=== PATIENT | male | born 1975 | race Caucasian/White ===

== ENCOUNTER 2018-12-23 16:35 | Emergency (ER) | payer OTHER ==
[~2018-12-23] VITALS: Ht 185.4 cm; Wt 127.9 kg
[~2018-12-23 16:35] MED LIST: ESOM40CA PO; TRAM50TA PO
--- NOTE | 2018-12-23 17:19 | RAD ---
ELBOW LEFT 3V History: Injury from fall today, left elbow pain Comparison: None. Findings: 3 views left elbow are submitted. There is a nondisplaced radial head fracture. There is displacement of anterior fat pad. Impression: 1. There is nondisplaced radial head fracture. Electronically signed by: Bienvenido Garnett MD (12/23/2018 5:15 PM) [id number]
--- NOTE | 2018-12-23 17:39 | PHYS DOC ---
Past History Past Medical History: No Pertinent History, GERD Past Surgical History: Other Alcohol Use: None Drug Use: None Adult General Chief Complaint Chief Complaint: ELBOW PROBLEM HPI HPI 43-year-old male presents with left elbow pain. 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 He was going down a flight of concrete stairs when he tripped and rolled his he fell. He was trying to protect his head and neck. He knows that all of his weight came down on his left elbow. He finished his route, but has significant pain in the elbow. He denies any other injuries or complaints. He denies head injury or loss of consciousness. Review of Systems Review of Systems Constitutional: Denies fever or chills [] Eyes: Denies change in visual acuity, redness, or eye pain [] HENT: Denies nasal congestion or sore throat [] Respiratory: Denies cough or shortness of breath [] Cardiovascular: No additional information not addressed in HPI [] GI: Denies abdominal pain, nausea, vomiting, bloody stools or diarrhea [] : Denies dysuria or hematuria [] Musculoskeletal: Left elbow pain[] Integument: Denies rash or skin lesions [] Neurologic: Denies headache, focal weakness or sensory changes [] Endocrine: Denies polyuria or polydipsia [] All other systems were reviewed and found to be within normal limits, except as documented in this note. Current Medications Current Medications Current Medications Medications (Trade) Dose Ordered Sig/[facility] Start Time Stop Time Status Last Admin Dose Admin Acetaminophen/ Hydrocodone Bitart (Lortab 5/325) 2 tab 1X ONCE 12/23/18 18:00 12/23/18 18:01 12/23/18 17:36 2 TAB Allergies Allergies Allergies Coded Allergies Type Severity Reaction Last Updated Verified Penicillins Allergy Intermediate 08/22/15 Yes naproxen Allergy Intermediate 08/22/15 Yes prednisone Allergy Intermediate 08/22/15 Yes Physical Exam Physical Exam Constitutional: Well developed, well nourished, no acute distress, non-toxic appearance. [] HENT: Normocephalic, atraumatic, bilateral external ears normal, oropharynx moist, no oral exudates, nose normal. [] Eyes: PERRLA, EOMI, conjunctiva normal, no discharge. [] Neck: Normal range of motion, no tenderness, supple, no stridor. [] Cardiovascular:Heart rate regular rhythm, no murmur [] Lungs & Thorax: Bilateral breath sounds clear to auscultation [] Abdomen: Bowel sounds normal, soft, no tenderness, no masses, no pulsatile masses. [] Skin: Warm, dry, no erythema, no rash. [] Back: No tenderness, no CVA tenderness. [] Extremities: Range of motion of left elbow limited due to pain. Pain with palpation. No obvious deformity.[] Neurologic: Alert and oriented X 3, normal motor function, normal sensory function, no focal deficits noted. [] Psychologic: Affect normal, judgement normal, mood normal. [] Current Patient Data Vital Signs Vital Signs Date Time Temp Pulse Resp B/P (MAP) Pulse Ox O2 Delivery O2 Flow Rate FiO2 12/23/18 17:29 98.4 68 20 98 Room Air EKG EKG [] Radiology/Procedures Radiology/Procedures [] Impressions: ELBOW LEFT 3V History: Injury from fall today, left elbow pain Comparison: None. Findings: 3 views left elbow are submitted. There is a nondisplaced radial head fracture. There is displacement of anterior fat pad. Impression: 1. There is nondisplaced radial head fracture. Electronically signed by: Toña Moody MD (12/23/2018 5:15 PM) [id number] DICTATED AND SIGNED BY: TOÑA MOODY MD DATE: 12/23/18 1715 CC: AIDAN BEASLEY DO; CARLOTTA HITCHCOCK; [facility] Course & Med Decision Making Course & Med Decision Making Pertinent Labs and Imaging studies reviewed. (See chart for details) The patient has a nondisplaced radial head fracture. We will place him in a splint with sling and refer him to orthopedics. I will discharge him with Waldron 5/325 for pain. He is stable for discharge at this time. [] Dragon Disclaimer Dragon Disclaimer This electronic medical record was generated, in whole or in part, using a voice recognition dictation system. Departure Departure: Impression: Primary Impression: Fracture of radial head, left, closed Disposition: 01 HOME, SELF-CARE Condition: STABLE Referrals: CARLOTTA HITCHCOCK (PCP) Patient Instructions: Radial Head Fracture, [id number] Additional Instructions: Please call [facility] orthopedic group at [phone]. Be sure to tell them you were in the ED and have a radial head fracture. Problem Qualifiers Primary Impression: Fracture of radial head, left, closed Encounter type: initial encounter Fracture alignment: nondisplaced Qualified Codes: S52.125A - Nondisplaced fracture of head of left radius, initial encounter for closed fracture AIDAN BEASLEY DO Dec 23, 2018 17:39
[2018-12-23] MEDS ORDERED: HYDR-3165 PO (17:51)
[2018-12-23] MEDS ORDERED: HYDROcodone/APAP 5/325MG 1 TAB TABLET PO ONE (18:00)
[2018-12-23 18:06] VITALS: BP 154/62
== END 2018-12-23 18:13 | disposition home or self-care (01) ==
LOC: ER 16:35
DX: S52.125A Nondisplaced fracture of head of left radius, initial encounter for closed fracture (principal); K21.9 Gastro-esophageal reflux disease without esophagitis; Z88.0 Allergy status to penicillin; Z88.6 Allergy status to analgesic agent; Z88.8 Allergy status to other drugs, medicaments and biological substances; W01.0XXA Fall on same level from slipping, tripping and stumbling without subsequent striking against object, initial encounter; Y93.89 Activity, other specified; Y92.89 Other specified places as the place of occurrence of the external cause; Y99.8 Other external cause status
CPT/HCPCS: 29105; 73080; 99283